=== PATIENT | male | born 1970 | race Caucasian/White ===

== ENCOUNTER 2022-02-23 10:57 | Day surgery (SDC) | payer OTHER ==
[~2022-02-23] VITALS: Ht 175.3 cm; Wt 113.8 kg
[2022-02-23] VITALS (7 sets, daily range): BP systolic 113–141; BP diastolic 72–88
[2022-02-23] MEDS ORDERED: normal saline 1000ml 1,000 ML IV PRN (11:20)
[2022-02-23] MEDS ORDERED: AMLO10TA13 PO (12:00)
[2022-02-23] MEDS ORDERED: PANT40TA54 PO (12:00)
[2022-02-23] MEDS ORDERED: IPRA3AMP31 NEB (12:00)
[2022-02-23 12:03] LABS: BASOPHILS # (AUTO) 0.2 X10'3 (0-0.2); BASOPHILS % (AUTO) 1.9 % (0-1); EOSINOPHILS # (AUTO) 0.4 X10'3 (0-0.9); EOSINOPHILS % (AUTO) 4.2 % (0-6); HEMOGLOBIN 15.4 g/dl (14.0-17.9); LYMPHOCYTES # (AUTO) 3.4 X10'3 (1.1-4.8); LYMPHOCYTES % (AUTO) 38.7 % (21-51); MEAN CORPUSCULAR HEMOGLOBIN 29.8 PG (27.0-31.0); MEAN CORPUSCULAR HGB CONC 33.6 g/dL (33.0-36.5); MEAN CORPUSCULAR VOLUME 88.8 FL (78-98); MEAN PLATELET VOLUME 8.5 FL (7.4-10.4); MONOCYTES # (AUTO) 0.5 X10'3 (0-0.9); MONOCYTES % (AUTO) 5.6 % (2-12); NEUTROPHILS # (AUTO) 4.4 X10'3 (1.8-7.7); NEUTROPHILS % (AUTO) 49.6 % (42-75); PLATELET COUNT 267 X10'3 (140-440); RED BLOOD COUNT 5.17 X10'6 (4.70-6.10); RED CELL DISTRIBUTION WIDTH 13.4 % (11.5-14.5); WHITE BLOOD COUNT 8.8 X10'3 (4.5-11.0)
[2022-02-23] MEDS ORDERED: glucagon, human recombinant 1mg kit ONE (13:03)
[2022-02-23] MEDS ORDERED: midazolam 1 mg/ML 2ml injection ONE ×2 (13:03→14:12)
[2022-02-23] MEDS ORDERED: LIDOcaine 1% 30ml preserv. free vial ONE (13:04)
[2022-02-23] MEDS ORDERED: iohexol 300mg/ml 100ml inj. ONE (13:04)
[2022-02-23] MEDS ORDERED: fentaNYL/PF 50MCG/1 ML 2ML syringe ONE ×2 (13:04→14:12)
[2022-02-23] MEDS ORDERED: LIDOcaine 2% 10ml TOPICAL JELLY (Urojet) MM ONE (13:40)
--- NOTE | 2022-02-23 15:00 | NUR ---
Called Dr. Baker regarding home prescription for pain medication.
[2022-02-23] MEDS ORDERED: HYDR-3965 PO ×2 (15:34→16:05)
[2022-02-23] MEDS ORDERED: HYDROmorphone inj. 0.5 MG/0.5 ML DISP.SYRIN IV ONE (16:05)
== END 2022-02-23 16:55 | disposition home or self-care (01) ==
LOC: SSTAY O 10:57
PROVIDERS: ATTEND Radiology Vascular & Interventional Radiology
DX: C32.0 Malignant neoplasm of glottis (principal); Z79.899 Other long term (current) drug therapy; Z98.890 Other specified postprocedural states
CPT/HCPCS: 36415; 49440; 85025; 99152; 99153; C1713; J1170; J1610; J2250; J3010; J3490; J7030; Q9967; A4620; A6449; B4087

== ENCOUNTER 2022-03-30 10:28 | Day surgery (SDC) | payer OTHER ==
[~2022-03-30] VITALS: Ht 175.3 cm; Wt 115.3 kg
[~2022-03-30 10:28] MED LIST: AMLO10TA13 PO; IPRA3AMP31 NEB; PANT40TA54 PO
[2022-03-30 11:00] VITALS: BP 137/85
[2022-03-30] MEDS ORDERED: iohexol 300mg/ml 100ml inj. ONE (11:19)
== END 2022-03-30 11:45 | disposition home or self-care (01) ==
LOC: SSTAY O 10:28
PROVIDERS: ATTEND Radiology Vascular & Interventional Radiology
DX: Z43.1 Encounter for attention to gastrostomy (principal); Z79.899 Other long term (current) drug therapy
CPT/HCPCS: 43762; 74018; B4087; Q9967

== ENCOUNTER 2022-06-21 09:38 | Outpatient (CLI) | payer OTHER ==
[~2022-06-21] VITALS: Ht 175.3 cm; Wt 111.1 kg
[2022-06-21] MEDS ORDERED: albuterol 2.5 MG/3 ML nebule NEB PRN (10:30)
== END 2022-06-21 23:59 | disposition home or self-care (01) ==
LOC: RAD 09:38
PROVIDERS: ATTEND Chiropractor
DX: R94.2 Abnormal results of pulmonary function studies (principal); R06.02 Shortness of breath; Z79.899 Other long term (current) drug therapy
CPT/HCPCS: 71046; 94060; 94760